=== PATIENT | female | born 1980 | race American Indian/Alaskan Native ===

== ENCOUNTER 2016-08-20 16:58 | Emergency (ER) | payer MEDICAID ==
--- NOTE | 2016-08-20 17:16 | EDM.PDOC ---
ED HPI GI/ABDOMINAL - General Chief Complaint: Abdominal Pain Stated Complaint: SICK Time Seen by Provider: 08/20/16 17:25 Source of Information: Reports: Patient, RN, RN notes reviewed History Limitations: Reports: No limitations - History of Present Illness INITIAL COMMENTS - FREE TEXT/NARRATIVE: Patient complained of awaking at 3 a.m. with nausea and vomiting and approximately 2 to 3 hours later onset of diarrhea. Denies any fever or chills. Reported mild sore throat the day proceeding onset of symptoms. Also complains of mild dry cough with persistent wheezing for several weeks. States she is out of her Albuterol inhaler. No one else at home has been ill. Location: generalized Quality: Reports: ache Severity: moderate Associated Symptoms (-Female): Reports: denies other symptoms - Related Data Allergies/ADRs: Allergies Allergy/AdvReac Type Severity Reaction Status Date / Time No Known Allergies Allergy Verified 08/20/16 17:05 Home Meds: Home Meds . 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 Musculoskeletal History: Reports: None Neurological History: Reports: None Psychiatric History: Reports: None Endocrine/Metabolic History: Reports: None Hematologic History: Reports: None Immunologic History: Reports: None Oncologic (Cancer) History: Reports: None Dermatologic History: Reports: None - Infectious Disease History Infectious Disease History: Reports: Chicken pox - Past Surgical History Head Surgeries/Procedures: Reports: None GI Surgical History: Reports: Cholecystectomy Female Surgical History: Reports: Tubal ligation Social & Family History - Family History Family Medical History: Noncontributory - Tobacco Use Smoking Status *Q: Current Every Day Smoker Years of Tobacco use: 23 Packs/Tins Daily: 0.1 Used Tobacco, but Quit: No Month Tobacco Last Used: january Second Hand Smoke Exposure: No - Caffeine Use Caffeine Use: Reports: Coffee, Soda, Tea - Alcohol Use Days Per Week of Alcohol Use: 0 Number of Drinks Per Day: 5 Total Drinks Per Week: 0 - Recreational Drug Use Recreational Drug Use: No - Living Situation & Occupation Living situation: Reports: with significant other Occupation: employed ED ROS GENERAL - Review of Systems Review Of Systems: ROS reveals no pertinent complaints other than HPI. ED EXAM, GI/ABD - Physical Exam Exam: See Below Exam Limited By: No limitations General Appearance: alert, WD/WN, no apparent distress Eyes: bilateral: normal appearance, EOMI Ears: normal external exam, normal canal, hearing grossly normal, normal TMs Nose: no blood, nasal drainage (mucus and clear.) Throat/Mouth: Normal inspection Head: atraumatic, normocephalic Neck: normal inspection, supple, non-tender, full range of motion Respiratory/Chest: no respiratory distress, no accessory muscle use, decreased breath sounds, wheezing Cardiovascular: normal peripheral pulses, regular rate, rhythm, no edema, no gallop, no JVD, no murmur, no rub GI/Abdominal: no distention, hyperactive bowel sounds, tenderness (mild generalized). No: guarding, rebound, rigidity (Female) Exam: Deferred Rectal (Female) Exam: Deferred Back Exam: normal inspection, full range of motion, NT Extremities: normal inspection, normal range of motion, non-tender, normal capillary refill, no pedal edema Neurological: alert, oriented, CN II-XII intact, normal cognition, normal gait, no motor/sensory deficits Psychiatric: normal affect, normal mood Course - Vital Signs Last Recorded V/S: Last Vital Signs Temp 37.3 C 08/20/16 18:20 Pulse 76 08/20/16 18:20 Resp 16 08/20/16 18:20 BP 104/54 L 08/20/16 18:20 Pulse Ox 100 08/20/16 18:20 - Orders/Labs/Meds Orders: Active Orders 24 hr Category Date Time Status Peripheral IV Care [RC] . DIRECTED Care 08/20/16 17:40 Active RT Aerosol Therapy [RC] ASDIRECTED Care 08/20/16 17:40 Active Chest 2V [CR] Stat Exams 08/20/16 17:39 Taken CULTURE STREP A CONFIRMATION [RM] Stat Lab 08/20/16 17:24 Results STREP SCRN A RAPID W CULT CONF [RM] Stat Lab 08/20/16 17:24 Results UA W/MICROSCOPIC [URIN] Stat Lab 08/20/16 18:12 Received Sodium Chloride 0.9% [Normal Saline] 1,000 ml Med 08/20/16 17:40 Active IV .BOLUS Sodium Chloride 0.9% [Saline Flush] Med 08/20/16 17:40 Active 10 ml FLUSH ASDIRECTED PRN Peripheral IV Insertion Adult [OM.PC] Stat Oth 08/20/16 17:39 Ordered Medication Orders Sodium Chloride (Normal Saline) 1,000 mls @ 999 mls/hr IV .BOLUS ONE Stop: 08/20/16 18:40 Last Admin: 08/20/16 18:12 Dose: Not Given Sodium Chloride (Saline Flush) 10 ml FLUSH ASDIRECTED PRN PRN Reason: Keep Vein Open Labs: Laboratory Tests 08/20/16 08/20/16 08/20/16 Range/Units 17:48 17:48 18:12 WBC 11.8 H (5.0-10.0) 10^3/uL RBC 4.69 (4.2-5.4) 10^6/uL Hgb 12.9 (12.0-16.0) g/dL Hct 39.6 (37.0-47.0) % MCV 84.4 (80-100) fL MCH 27.5 (27.0-34.0) pg MCHC 32.6 L (33.0-35.0) g/dL Plt Count 277 (150-450) 10^3/uL Neut % (Auto) 78.0 H (42.2-75.2) % Lymph % (Auto) 10.5 L (20.5-50.1) % [place] % (Auto) 8.8 H (2-8) % Eos % (Auto) 2.4 (1.0-3.0) % Baso % (Auto) 0.3 (0.0-1.0) % Sodium 137 (135-145) mmol/L Potassium 3.6 (3.6-5.0) mmol/L Chloride 104 (101-111) mmol/L Carbon Dioxide 25.0 (21.0-31.0) mmol/L Anion Gap 11.6 BUN 13 (7-18) mg/dL Creatinine 0.8 (0.6-1.3) mg/dL Est Cr Clr Drug Dosing TNP Estimated GFR (MDRD) > 60 BUN/Creatinine Ratio 16.25 Glucose 81 (74-105) mg/dL Calcium 9.2 (8.4-10.2) mg/dl Total Bilirubin 0.7 (0.2-1.0) mg/dL AST 22 (10-42) IU/L ALT 29 (10-60) IU/L Alkaline Phosphatase 55 (42-121) IU/L Total Protein 7.2 (6.7-8.2) g/dl Albumin 4.2 (3.2-5.5) g/dl Globulin 3.0 Albumin/Globulin Ratio 1.40 Amylase 55 (28-100) U/L Lipase 28 (22-51) U/L Urine HCG, Qual Negative Meds: Medications Generic Name Dose Route Start Last Admin Trade Name Freq PRN Reason Stop Dose Admin Sodium Chloride 1,000 mls @ 999 mls/hr 08/20/16 17:40 08/20/16 18:12 Normal Saline IV 08/20/16 18:40 Not Given .BOLUS ONE Sodium Chloride 10 ml 08/20/16 17:40 Saline Flush FLUSH ASDIRECTED PRN Keep Vein Open Discontinued Medications Generic Name Dose Route Start Last Admin Trade Name Freq PRN Reason Stop Dose Admin Albuterol/Ipratropium 3 ml 08/20/16 17:40 08/20/16 18:18 Duoneb 3.0-0.5 Mg/3 Ml NEB 08/20/16 17:41 3 ml ONETIME ONE Administration Ondansetron HCl 4 mg 08/20/16 17:40 08/20/16 18:12 Zofran IV 08/20/16 17:41 Not Given ONETIME ONE - Radiology Interpretation Free Text/Narrative:: Chest x-ray: No acute process, see rad report. Departure - Departure Time of Disposition: 18:39 Disposition: Home, Self-Care 01 Condition: fair Clinical Impression: Gastroenteritis, Asthma exacerbation Instructions: Viral Gastroenteritis, Adult, [id number], Asthma, Adult Forms: ED Department Discharge Additional Instructions: Albuteral MDI. Zofran 4mg. Use over the counter Imodium AD as directed on the package for diarrhea. Follow up in clinic if not improved in 4 to 5 days. - My Orders Last 24 Hours: My Active Orders 08/20/16 17:24 CULTURE STREP A CONFIRMATION [RM] Stat STREP SCRN A RAPID W CULT CONF [RM] Stat 08/20/16 17:39 Chest 2V [CR] Stat Peripheral IV Insertion Adult [OM.PC] Stat 08/20/16 17:40 Peripheral IV Care [RC] . DIRECTED RT Aerosol Therapy [RC] ASDIRECTED Sodium Chloride 0.9% [Normal Saline] 1,000 ml IV .BOLUS Sodium Chloride 0.9% [Saline Flush] 10 ml FLUSH ASDIRECTED PRN 08/20/16 18:12 UA W/MICROSCOPIC [URIN] Stat - Assessment/Plan Last 24 Hours: My Active Orders 08/20/16 17:24 CULTURE STREP A CONFIRMATION [] Stat STREP SCRN A RAPID W CULT CONF [RM] Stat 08/20/16 17:39 Chest 2V [CR] Stat Peripheral IV Insertion Adult [OM.PC] Stat 08/20/16 17:40 Peripheral IV Care [RC] . DIRECTED RT Aerosol Therapy [RC] ASDIRECTED Sodium Chloride 0.9% [Normal Saline] 1,000 ml IV .BOLUS Sodium Chloride 0.9% [Saline Flush] 10 ml FLUSH ASDIRECTED PRN 08/20/16 18:12 UA W/MICROSCOPIC [URIN] Stat
[2016-08-20] MEDS ORDERED: Sodium Chloride 0.9% 10 ML Syringe FLUSH PRN (17:40)
[2016-08-20] MEDS ORDERED: Ondansetron 4 MG/2 ML SDV IV ONE (17:40)
[2016-08-20] MEDS ORDERED: Sodium Chloride 0.9% 1,000 ML IV ONE (17:40)
[2016-08-20] MEDS ORDERED: Albuterol/Ipratropium 3.0-0.5 MG/3 ML Neb Soln NEB ONE (17:40)
[2016-08-20 18:15] LABS: CHLORIDE,CL 104 mmol/L (101-111); SODIUM,NA 137 mmol/L (135-145)
[2016-08-20 18:20] VITALS: BP 104/54
== END 2016-08-20 18:47 | disposition home or self-care (01) ==
LOC: DL.ED 16:58
DX: K52.9 Noninfective gastroenteritis and colitis, unspecified (principal); J45.901 Unspecified asthma with (acute) exacerbation; F17.210 Nicotine dependence, cigarettes, uncomplicated; Z98.51 Tubal ligation status; Z90.49 Acquired absence of other specified parts of digestive tract
CPT/HCPCS: 36415; 71020; 80053; 81001; 81025; 82150; 83690; 85025; 87081; 87430; 94640; 99284

== ENCOUNTER 2017-06-13 17:18 | Emergency (ER) | payer MEDICAID ==
[2017-06-13 17:29] VITALS: BP 121/63
--- NOTE | 2017-06-13 18:06 | EDM.PDOC ---
Scribed by Estrella Albright 06/13/17 1806 for Jeromy Hoang MD ED HPI GENERAL MEDICAL PROBLEM - General Chief Complaint: Lower Extremity Injury/Pain Stated Complaint: KNEE INJURY [id number] Time Seen by Provider: 06/13/17 17:27 Source of Information: Reports: Patient, RN, RN Notes Reviewed History Limitations: Reports: No Limitations - History of Present Illness INITIAL COMMENTS - FREE TEXT/NARRATIVE: Patient presents stating that at midnight last night she fell off a 4-greer injuring her right knee. Denies any other injury. She complains of significant swelling to the right knee. Unable to bear weight but the pain is so severe with weight bearing that she feels that her knee could give out on her. It is better immobilized and worse with weight bearing, range of motion or palpation. Onset: Today Duration: Getting Worse Location: Reports: Lower Extremity, Right Quality: Reports: Ache Severity: Severe Improves with: Reports: None Worsens with: Reports: None Associated Symptoms: Reports: No Other Symptoms Right Knee Pain Score (Numeric/FACES): 8 - Related Data Allergies Allergy/AdvReac Type Severity Reaction Status Date / Time No Known Allergies Allergy Verified 06/13/17 17:23 Home Meds: Home Meds . 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 Musculoskeletal History: Reports: None Neurological History: Reports: None Psychiatric History: Reports: None Endocrine/Metabolic History: Reports: None Hematologic History: Reports: None Immunologic History: Reports: None Oncologic (Cancer) History: Reports: None Dermatologic History: Reports: None - Infectious Disease History Infectious Disease History: Reports: Chicken Pox - Past Surgical History Female Surgical History: Reports: Tubal Ligation Social & Family History - Family History Family Medical History: Noncontributory - Tobacco Use Smoking Status *Q: Current Every Day Smoker Years of Tobacco use: 23 Packs/Tins Daily: 0.1 Used Tobacco, but Quit: No Month Tobacco Last Used: january Second Hand Smoke Exposure: No - Caffeine Use Caffeine Use: Reports: Coffee, Soda, Tea - Alcohol Use Days Per Week of Alcohol Use: 0 Number of Drinks Per Day: 5 Total Drinks Per Week: 0 - Recreational Drug Use Recreational Drug Use: No - Living Situation & Occupation Living situation: Reports: with Significant Other Occupation: Employed Review of Systems - Review of Systems Review Of Systems: ROS reveals no pertinent complaints other than HPI. ED EXAM, GENERAL - Physical Exam Exam: See Below Exam Limited By: No Limitations General Appearance: Alert, WD/WN, No Apparent Distress Head: Atraumatic, Normocephalic Neck: Full Range of Motion Respiratory/Chest: No Respiratory Distress GI/Abdominal: Normal Bowel Sounds, Soft, Non-Tender (Female) Exam: Deferred Rectal (Female) Exam: Deferred Back Exam: Normal Inspection, Full Range of Motion, NT Extremities: No Pedal Edema, Normal Capillary Refill, Joint Swelling (right anterior knee with significant soft tissue swelling, bruising/contusion. Acute tenderness and decreased range of motion due to pain. Skin is intact.) Neurological: Alert, Oriented, Normal Cognition, No Motor/Sensory Deficits Psychiatric: Normal Affect, Normal Mood Course - Vital Signs Last Recorded V/S: Last Vital Signs Temp 36.9 C 06/13/17 17:28 Pulse 105 H 06/13/17 17:28 Resp 18 06/13/17 17:28 BP 121/63 06/13/17 17:28 Pulse Ox 99 06/13/17 17:28 - Orders/Labs/Meds Orders: Active Orders 24 hr Category Date Time Status Immobilizer [RC] ASDIRECTED Care 06/13/17 18:03 Active DME for Discharge [COMM] Routine Oth 06/13/17 17:36 Ordered - Radiology Interpretation Free Text/Narrative:: X-ray right knee: Soft tissue swelling. No fracture. See rad report. Departure - Departure Time of Disposition: 17:50 Disposition: Home, Self-Care 01 Condition: Good Clinical Impression: Traumatic bursitis - Discharge Information Instructions: Knee Pain, Bursitis, [id number], Contusion, [id number] Referrals: Africa White [Primary Care Provider] - Forms: ED Department Discharge Additional Instructions: Rest, ice and elevate. Use crutches and knee immobilizer as needed for discomfort for 10 days. Over the counter ibuprofen (Motrin/Advil0 200mg, take 3 tablets by mouth every 3 hours as needed for pain. Take with food. Do not exceed 2400mg in 24 hours. Follow up in clinic in 7-10 days for recheck. Consider orthopedic referral if not improving as expected in 10 days. - My Orders Last 24 Hours: My Active Orders 06/13/17 17:36 DME for Discharge [COMM] Routine 06/13/17 18:03 Immobilizer [RC] ASDIRECTED - Assessment/Plan Last 24 Hours: My Active Orders 06/13/17 17:36 DME for Discharge [COMM] Routine 06/13/17 18:03 Immobilizer [RC] ASDIRECTED I have read and agree with the documentation that has been completed regarding this visit. By signing this record, I attest that the documentation was completed in my physical presence and is an accurate record of the encounter.
== END 2017-06-13 18:05 | disposition home or self-care (01) ==
LOC: DL.ED 17:18
DX: M70.51 Other bursitis of knee, right knee (principal); F17.210 Nicotine dependence, cigarettes, uncomplicated; W17.89XA Other fall from one level to another, initial encounter
CPT/HCPCS: 73562-RT; 99283

== ENCOUNTER 2017-08-14 21:19 | Emergency (ER) | payer MEDICAID ==
[2017-08-14] MEDS ORDERED: Sodium Chloride 0.9% 10 ML Syringe FLUSH PRN (21:39)
[2017-08-14 22:02] LABS: CHLORIDE,CL 105 mmol/L (101-111); SODIUM,NA 136 mmol/L (135-145)
[2017-08-14 22:03] VITALS: BP 108/43
--- NOTE | 2017-08-14 22:28 | EDM.PDOC ---
ED HPI GENERAL MEDICAL PROBLEM - General Chief Complaint: Chest Pain Stated Complaint: CHEST PAIN [id number] Time Seen by Provider: 08/14/17 21:42 Source of Information: Reports: Patient, RN, RN Notes Reviewed History Limitations: Reports: No Limitations - History of Present Illness INITIAL COMMENTS - FREE TEXT/NARRATIVE: Pt presents to the ER with c/o chest/neck pain and headache. She states the pain was present when she woke up this morning and has moved to different places but has not gone away. She states the headache feels like a nerve pain on the right side of her scalp. She states the chest pain is in the left upper chest area with some radiation into the left side of the neck. She denies any injury. She denies fever, chills, N/V/D, SOB. She states she has had a dry cough at times. 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 [No Known Home Meds] 10/16/14 [History] Past Medical History - Past Health History Medical/Surgical History: Denies Medical/Surgical History HEENT History: Reports: None Cardiovascular History: Reports: None Respiratory History: Reports: None Gastrointestinal History: Reports: Cholelithiasis Genitourinary History: Reports: None BENCH CARPENTER History: Reports: None Musculoskeletal History: Reports: None Neurological History: Reports: None Psychiatric History: Reports: None Endocrine/Metabolic History: Reports: None Hematologic History: Reports: None Immunologic History: Reports: None Oncologic (Cancer) History: Reports: None Dermatologic History: Reports: None - Infectious Disease History Infectious Disease History: Reports: Chicken Pox - Past Surgical History Head Surgeries/Procedures: Reports: None GI Surgical History: Reports: Cholecystectomy Female Surgical History: Reports: Tubal Ligation Social & Family History - Family History Family Medical History: Noncontributory - Tobacco Use Smoking Status *Q: Unknown Ever Smoked Years of Tobacco use: 23 Packs/Tins Daily: 0.1 Used Tobacco, but Quit: No Month/Year Tobacco Last Used: january Second Hand Smoke Exposure: No - Caffeine Use Caffeine Use: Reports: Coffee, Soda, Tea - Alcohol Use Days Per Week of Alcohol Use: 0 Number of Drinks Per Day: 5 Total Drinks Per Week: 0 - Recreational Drug Use Recreational Drug Use: No - Living Situation & Occupation Living situation: Reports: with Significant Other Occupation: Employed ED ROS GENERAL - Review of Systems Review Of Systems: ROS reveals no pertinent complaints other than HPI. ED EXAM, GENERAL - Physical Exam Exam: See Below Exam Limited By: No Limitations General Appearance: Alert, WD/WN, No Apparent Distress Eye Exam: Bilateral Eye: EOMI, Normal Inspection Ears: Normal External Exam, Hearing Grossly Normal Nose: Normal Inspection Throat/Mouth: Normal Inspection, Normal Voice, No Airway Compromise Head: Atraumatic, Normocephalic Neck: Normal Inspection, Supple, Non-Tender, Full Range of Motion Respiratory/Chest: No Respiratory Distress, Lungs Clear, Normal Breath Sounds, No Accessory Muscle Use, Chest Non-Tender Cardiovascular: Normal Peripheral Pulses, Regular Rate, Rhythm, No Edema, No Gallop, No JVD, No Murmur, No Rub Peripheral Pulses: 2+: Radial (L), Radial (R) GI/Abdominal: Normal Bowel Sounds, Soft, Non-Tender, No Organomegaly, No Distention, No Abnormal Bruit, No Mass (Female) Exam: Deferred Rectal (Female) Exam: Deferred Back Exam: Normal Inspection, Full Range of Motion Extremities: Normal Inspection, Normal Range of Motion, Non-Tender, No Pedal Edema, Normal Capillary Refill Neurological: Alert, Oriented, CN II-XII Intact, Normal Cognition, Normal Gait, Normal Reflexes, No Motor/Sensory Deficits Psychiatric: Normal Affect, Normal Mood Skin Exam: Warm, Dry, Intact, Normal Color, No Rash Lymphatic: No Adenopathy Course - Vital Signs Last Recorded V/S: Last Vital Signs Temp 99.6 F 08/14/17 21:25 Pulse 71 08/14/17 21:25 Resp 20 08/14/17 21:25 BP 108/43 L 08/14/17 21:25 Pulse Ox 99 08/14/17 21:25 - Orders/Labs/Meds Orders: Active Orders 24 hr Category Date Time Status EKG Documentation Completion [RC] STAT Care 08/14/17 21:39 Active Peripheral IV Care [RC] . DIRECTED Care 08/14/17 21:40 Active DRUG SCREEN URINE BIORAD [URCHEM] Stat Lab 08/14/17 22:22 Ordered HCG QUALITATIVE,URINE [URCHEM] Stat Lab 08/14/17 22:22 Ordered UA W/MICROSCOPIC [URIN] Stat Lab 08/14/17 22:22 Ordered Peripheral IV Insertion Adult [OM.PC] Stat Oth 08/14/17 21:39 Ordered Labs: Laboratory Tests 08/14/17 08/14/17 08/14/17 Range/Units 21:35 21:35 22:22 WBC 11.8 H (5.0-10.0) 10^3/uL RBC 4.64 (4.2-5.4) 10^6/uL Hgb 13.3 (12.0-16.0) g/dL Hct 40.7 (37.0-47.0) % MCV 87.7 D (80-100) fL MCH 28.7 (27.0-34.0) pg MCHC 32.7 L (33.0-35.0) g/dL Plt Count 326 (150-450) 10^3/uL Neut % (Auto) 57.1 (42.2-75.2) % Lymph % (Auto) 25.2 (20.5-50.1) % [place] % (Auto) 9.4 H (2-8) % Eos % (Auto) 7.8 H (1.0-3.0) % Baso % (Auto) 0.5 (0.0-1.0) % Sodium 136 (135-145) mmol/L Potassium 3.4 L (3.6-5.0) mmol/L Chloride 105 (101-111) mmol/L Carbon Dioxide 24.0 (21.0-31.0) mmol/L Anion Gap 10.4 BUN 12 (7-18) mg/dL Creatinine 0.7 (0.6-1.3) mg/dL Est Cr Clr Drug Dosing TNP Estimated GFR (MDRD) > 60 BUN/Creatinine Ratio 17.14 Glucose 102 (74-105) mg/dL Calcium 9.0 (8.4-10.2) mg/dl Total Bilirubin 0.4 (0.2-1.0) mg/dL AST 25 (10-42) IU/L ALT 26 (10-60) IU/L Alkaline Phosphatase 59 (42-121) IU/L Troponin I < 0.02 (0.00-0.02) ng/ml Total Protein 7.1 (6.7-8.2) g/dl Albumin 4.1 (3.2-5.5) g/dl Globulin 3.0 Albumin/Globulin Ratio 1.37 Urine Color Yellow (YELLOW) Urine Appearance Slightly cloudy (CLEAR) Urine pH 6.0 (5.0-9.0) Ur Specific [place] 1.020 (1.005-1.030) Urine Protein Negative (NEGATIVE) Urine Glucose (UA) Negative (NEGATIVE) Urine Ketones Negative (NEGATIVE) Urine Occult Blood Negative (NEGATIVE) Urine Nitrite Negative (NEGATIVE) Urine Bilirubin Negative (NEGATIVE) Urine Urobilinogen 0.2 (0.2-1.0) mg/dL Ur Leukocyte Esterase Trace H (NEGATIVE) Urine RBC 0-5 /HPF Urine WBC 0-5 (0-5/HPF) /HPF Ur Epithelial Cells Few /HPF Urine Bacteria Few (0-FEW/HPF) /HPF Urine Other See note Urine HCG, Qual Urine Opiates Screen (NEGATIVE) Ur Oxycodone Screen (NEGATIVE) Urine Methadone Screen (NEGATIVE) Ur Barbiturates Screen (NEGATIVE) U Tricyclic Antidepress (NEGATIVE) Ur Phencyclidine Scrn (NEGATIVE) Ur Amphetamine Screen (NEGATIVE) U Methamphetamines Scrn (NEGATIVE) Urine MDMA Screen (NEGATIVE) U Benzodiazepines Scrn (NEGATIVE) Urine Cocaine Screen (NEGATIVE) U Marijuana (THC) Screen (NEGATIVE) 08/14/17 08/14/17 Range/Units 22:22 22:22 WBC (5.0-10.0) 10^3/uL RBC (4.2-5.4) 10^6/uL Hgb (12.0-16.0) g/dL Hct (37.0-47.0) % MCV (80-100) fL MCH (27.0-34.0) pg MCHC (33.0-35.0) g/dL Plt Count (150-450) 10^3/uL Neut % (Auto) (42.2-75.2) % Lymph % (Auto) (20.5-50.1) % [place] % (Auto) (2-8) % Eos % (Auto) (1.0-3.0) % Baso % (Auto) (0.0-1.0) % Sodium (135-145) mmol/L Potassium (3.6-5.0) mmol/L Chloride (101-111) mmol/L Carbon Dioxide (21.0-31.0) mmol/L Anion Gap BUN (7-18) mg/dL Creatinine (0.6-1.3) mg/dL Est Cr Clr Drug Dosing Estimated GFR (MDRD) BUN/Creatinine Ratio Glucose (74-105) mg/dL Calcium (8.4-10.2) mg/dl Total Bilirubin (0.2-1.0) mg/dL AST (10-42) IU/L ALT (10-60) IU/L Alkaline Phosphatase (42-121) IU/L Troponin I (0.00-0.02) ng/ml Total Protein (6.7-8.2) g/dl Albumin (3.2-5.5) g/dl Globulin Albumin/Globulin Ratio Urine Color (YELLOW) Urine Appearance (CLEAR) Urine pH (5.0-9.0) Ur Specific [place] (1.005-1.030) Urine Protein (NEGATIVE) Urine Glucose (UA) (NEGATIVE) Urine Ketones (NEGATIVE) Urine Occult Blood (NEGATIVE) Urine Nitrite (NEGATIVE) Urine Bilirubin (NEGATIVE) Urine Urobilinogen (0.2-1.0) mg/dL Ur Leukocyte Esterase (NEGATIVE) Urine RBC /HPF Urine WBC (0-5/HPF) /HPF Ur Epithelial Cells /HPF Urine Bacteria (0-FEW/HPF) /HPF Urine Other Urine HCG, Qual Negative Urine Opiates Screen Negative (NEGATIVE) Ur Oxycodone Screen Negative (NEGATIVE) Urine Methadone Screen Negative (NEGATIVE) Ur Barbiturates Screen Negative (NEGATIVE) U Tricyclic Antidepress Negative (NEGATIVE) Ur Phencyclidine Scrn Negative (NEGATIVE) Ur Amphetamine Screen Negative (NEGATIVE) U Methamphetamines Scrn Negative (NEGATIVE) Urine MDMA Screen Negative (NEGATIVE) U Benzodiazepines Scrn Negative (NEGATIVE) Urine Cocaine Screen Negative (NEGATIVE) U Marijuana (THC) Screen Positive H (NEGATIVE) Meds: Medications Discontinued Medications Generic Name Dose Route Start Last Admin Trade Name Freq PRN Reason Stop Dose Admin Sodium Chloride 10 ml 08/14/17 21:39 Saline Flush FLUSH ASDIRECTED PRN Keep Vein Open - Radiology Interpretation Free Text/Narrative:: chest xray: IMPRESSION: Normal chest x-rays. Thank you for allowing us to participate in the care of your patient. Dictated and Authenticated by: Ran Mckeon MD 08/14/2017 10:21 PM Central Time ([place] & [place]) See rad report Departure - Departure Time of Disposition: 22:52 Disposition: Home, Self-Care 01 Condition: Fair Clinical Impression: Non-cardiac chest pain, Cervical radiculopathy Instructions: Nonspecific Chest Pain, [id number], Cervical Radiculopathy, [id number] Referrals: [facility] White [Primary Care Provider] - Forms: ED Department Discharge Additional Instructions: Use Tylenol and/or ibuprofen as directed for pain Follow up with your primary care facility - My Orders Last 24 Hours: My Active Orders 08/14/17 21:39 EKG Documentation Completion [RC] STAT Peripheral IV Insertion Adult [OM.PC] Stat 08/14/17 21:40 Peripheral IV Care [RC] . DIRECTED 08/14/17 22:22 DRUG SCREEN URINE BIORAD [URCHEM] Stat HCG QUALITATIVE,URINE [URCHEM] Stat UA W/MICROSCOPIC [URIN] Stat - Assessment/Plan Last 24 Hours: My Active Orders 08/14/17 21:39 EKG Documentation Completion [RC] STAT Peripheral IV Insertion Adult [OM.PC] Stat 08/14/17 21:40 Peripheral IV Care [RC] . DIRECTED 08/14/17 22:22 DRUG SCREEN URINE BIORAD [URCHEM] Stat HCG QUALITATIVE,URINE [URCHEM] Stat UA W/MICROSCOPIC [URIN] Stat
--- NOTE | 2017-08-18 12:45 | EKG ---
08/14/2017 - GABRIELLA KEATING - TIME: 2125 hours. EKG shows sinus rhythm at 74. [facility] /[id number]
== END 2017-08-14 23:55 | disposition home or self-care (01) ==
LOC: DL.ED 21:19
DX: M54.12 Radiculopathy, cervical region (principal); R07.89 Other chest pain
CPT/HCPCS: 36415; 71046; 80053; 80305; 81001; 81025; 84484; 85025; 87804; 93005; 99285

== ENCOUNTER 2017-12-25 18:12 | Emergency (ER) | payer MEDICAID ==
[2017-12-25 18:58] VITALS: BP 123/76
== END 2017-12-25 20:00 | disposition left against medical advice (07) ==
LOC: DL.ED 18:12
DX: Z53.21 Procedure and treatment not carried out due to patient leaving prior to being seen by health care provider (principal)

== ENCOUNTER 2018-02-05 16:26 | Emergency (ER) | payer MEDICAID ==
[2018-02-05 16:51] VITALS: BP 120/68
--- NOTE | 2018-02-05 17:15 | EDM.PDOC ---
ED HPI GENERAL MEDICAL PROBLEM - General Chief Complaint: Chest Pain Stated Complaint: SIGNS OF A HEART ATTACK [id number] Time Seen by Provider: 02/05/18 16:58 Source of Information: Reports: Patient History Limitations: Reports: No Limitations - History of Present Illness INITIAL COMMENTS - FREE TEXT/NARRATIVE: This 37 yo female patient reports to the ED with left side chest pain that started 3-4 days ago and left shoulder pain (started today radiates to her left arm). The patient reports that she was seen in the clinic about 1 week ago, given a script for a Zpack and steroids, but did not start them until 3 days ago. The patient reports her cough and cold symptoms seem to be getting better. Onset: Today Duration: Constant Location: Reports: Chest Quality: Reports: Ache, Dull, Pressure Severity: Moderate Improves with: Reports: None Worsens with: Reports: None Associated Symptoms: Reports: No Other Symptoms Left Shoulder Pain Score (Numeric/FACES): 8 - Related Data Allergies Allergy/AdvReac Type Severity Reaction Status Date / Time No Known Allergies Allergy Verified 02/05/18 16:50 Home Meds: Home Meds Albuterol Sulfate [Proair Hfa] 2 puff INH ASDIRECTED PRN 12/25/17 [History] Past Medical History - Past Health History Medical/Surgical History: Denies Medical/Surgical History HEENT History: Reports: None Cardiovascular History: Reports: None Respiratory History: Reports: None, Asthma Gastrointestinal History: Reports: Cholelithiasis Genitourinary History: Reports: None 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, Musculoskeletal History: Reports: None Neurological History: Reports: None Psychiatric History: Reports: None Endocrine/Metabolic History: Reports: None Hematologic History: Reports: None Immunologic History: Reports: None Oncologic (Cancer) History: Reports: None Dermatologic History: Reports: None - Infectious Disease History Infectious Disease History: Reports: Chicken Pox - Past Surgical History Head Surgeries/Procedures: Reports: None GI Surgical History: Reports: Cholecystectomy Female Surgical History: Reports: Tubal Ligation Social & Family History - Family History Family Medical History: Noncontributory - Tobacco Use Smoking Status *Q: Never Smoker Second Hand Smoke Exposure: No - Caffeine Use Caffeine Use: Reports: Soda Other Caffeine Use: 1 can/day - Recreational Drug Use Recreational Drug Use: No - Living Situation & Occupation Living situation: Reports: with Significant Other Occupation: Employed ED ROS GENERAL - Review of Systems Review Of Systems: ROS reveals no pertinent complaints other than HPI. ED EXAM, GENERAL - Physical Exam Exam: See Below Exam Limited By: No Limitations General Appearance: Alert, WD/WN, Mild Distress Eye Exam: Bilateral Eye: EOMI, Normal Inspection, PERRL Ears: Normal External Exam, Normal Canal, Hearing Grossly Normal, Normal TMs Nose: Normal Inspection, Normal Mucosa, No Blood Throat/Mouth: Normal Inspection, Normal Lips, Normal Teeth, Normal Gums, Normal Oropharynx, Normal Voice, No Airway Compromise Head: Atraumatic, Normocephalic Neck: Normal Inspection, Supple, Non-Tender, Full Range of Motion Respiratory/Chest: No Respiratory Distress, Lungs Clear, Normal Breath Sounds, No Accessory Muscle Use, Other (tenderness to the left upper chest) Cardiovascular: Normal Peripheral Pulses, Regular Rate, Rhythm, No Edema, No Gallop, No JVD, No Murmur, No Rub GI/Abdominal: Normal Bowel Sounds, Soft, Non-Tender, No Organomegaly, No Distention, No Abnormal Bruit, No Mass (Female) Exam: Deferred Rectal (Female) Exam: Deferred Back Exam: Normal Inspection, Full Range of Motion, NT Extremities: Arm Pain (left upper chest and shoulder pain) Neurological: Alert, Oriented, CN II-XII Intact, Normal Cognition, Normal Gait, Normal Reflexes, No Motor/Sensory Deficits Psychiatric: Anxious Skin Exam: Warm, Dry, Intact, Normal Color, No Rash Lymphatic: No Adenopathy Course - Vital Signs Last Recorded V/S: Last Vital Signs Temp 36.0 C 02/05/18 16:38 Pulse 65 02/05/18 16:38 Resp 14 02/05/18 16:38 BP 120/68 02/05/18 16:38 Pulse Ox 100 02/05/18 16:38 - Orders/Labs/Meds Orders: Active Orders 24 hr Category Date Time Status EKG Documentation Completion [RC] URGENT Care 02/05/18 16:40 Ordered DRUG SCREEN URINE BIORAD [URCHEM] Stat Lab 02/05/18 16:40 Ordered HCG QUALITATIVE,URINE [URCHEM] Stat Lab 02/05/18 16:40 Ordered UA W/MICROSCOPIC [URIN] Stat Lab 02/05/18 16:40 Ordered Labs: Laboratory Tests 09/28/18 09/28/18 Range/Units 16:54 16:54 WBC 11.7 H (5.0-10.0) 10^3/uL RBC 4.48 (4.2-5.4) 10^6/uL Hgb 12.2 (12.0-16.0) g/dL Hct 38.6 (37.0-47.0) % MCV 86.2 (80-100) fL MCH 27.2 (27.0-34.0) pg MCHC 31.6 L (33.0-35.0) g/dL Plt Count 370 (150-450) 10^3/uL Neut % (Auto) 57.9 (42.2-75.2) % Lymph % (Auto) 30.0 (20.5-50.1) % Schley % (Auto) 8.9 H (2-8) % Eos % (Auto) 2.6 (1.0-3.0) % Baso % (Auto) 0.6 (0.0-1.0) % Sodium 139 (135-145) mmol/L Potassium 3.5 L (3.6-5.0) mmol/L Chloride 106 (101-111) mmol/L Carbon Dioxide 29.0 (21.0-31.0) mmol/L Anion Gap 7.5 BUN 12 (7-18) mg/dL Creatinine 0.8 (0.6-1.3) mg/dL Est Cr Clr Drug Dosing 71.24 mL/min Estimated GFR (MDRD) > 60 BUN/Creatinine Ratio 15.00 Glucose 92 (74-105) mg/dL Calcium 8.8 (8.4-10.2) mg/dl Total Bilirubin 0.3 (0.2-1.0) mg/dL AST 18 (10-42) IU/L ALT 20 (10-60) IU/L Alkaline Phosphatase 60 (42-121) IU/L Troponin I < 0.02 (0.00-0.02) ng/ml Total Protein 6.8 (6.7-8.2) g/dl Albumin 4.0 (3.2-5.5) g/dl Globulin 2.8 Albumin/Globulin Ratio 1.43 Departure - Departure Time of Disposition: 17:46 Disposition: Home, Self-Care 01 Condition: Fair Clinical Impression: Chest wall pain Pectoralis muscle strain Qualifiers: Encounter type: initial encounter Qualified Code(s): S29.011A - Strain of muscle and tendon of front wall of thorax, initial encounter Instructions: Muscle Strain, [id number], Chest Wall Pain, [id number] Forms: ED Department Discharge Care Plan Goals: The patient was advised of the examination, lab and EKG results during the visit. The patient was encouraged to rest and ice the area of concern. The patient may take Tylenol or ibuprofen as directed for temporary symptom relief. If the patient has any additional symptoms or concerns, the patient should visit her primary care facility or return to the emergency department. - My Orders Last 24 Hours: My Active Orders 02/05/18 16:40 EKG Documentation Completion [RC] URGENT DRUG SCREEN URINE BIORAD [URCHEM] Stat HCG QUALITATIVE,URINE [URCHEM] Stat UA W/MICROSCOPIC [URIN] Stat - Assessment/Plan Last 24 Hours: My Active Orders 02/05/18 16:40 EKG Documentation Completion [RC] URGENT DRUG SCREEN URINE BIORAD [URCHEM] Stat HCG QUALITATIVE,URINE [URCHEM] Stat UA W/MICROSCOPIC [URIN] Stat
[2018-02-05 17:20] LABS: ANION GAP 7.5; CHLORIDE,CL 106 mmol/L (101-111); SODIUM,NA 139 mmol/L (135-145)
== END 2018-02-05 17:54 | disposition home or self-care (01) ==
LOC: DL.ED 16:26
DX: S29.011A Strain of muscle and tendon of front wall of thorax, initial encounter (principal); J45.909 Unspecified asthma, uncomplicated; X58.XXXA Exposure to other specified factors, initial encounter; Z79.899 Other long term (current) drug therapy
CPT/HCPCS: 36415; 80053; 84484; 85025; 93005; 99283

== ENCOUNTER 2018-05-22 09:36 | Emergency (ER) | payer MEDICAID ==
--- NOTE | 2018-05-22 09:42 | EDM.PDOC ---
ED HPI GENERAL MEDICAL PROBLEM - General Chief Complaint: Respiratory Problem Stated Complaint: HARD TIME BREATHING [id number] Time Seen by Provider: 05/22/18 09:39 Source of Information: Reports: Patient, Old Records, RN, RN Notes Reviewed History Limitations: Reports: No Limitations - History of Present Illness INITIAL COMMENTS - FREE TEXT/NARRATIVE: Pt presents to ER from home by POV with c/o "hard time breathing". Pt reports Hx of asthma. Denies fevers, sputum production, or sore throat. Has a nebulizer machine and Albuterol solution, but doesn't have the tubing or mouth piece. 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 Treatments - Related Data Allergies Allergy/AdvReac Type Severity Reaction Status Date / Time No Known Allergies Allergy Verified 05/22/18 09:48 Home Meds: Home Meds Albuterol Sulfate [Proair Hfa] 2 puff INH ASDIRECTED PRN 12/25/17 [History] Amoxicillin/Clavulanate K [Augmentin 875-125 MG] 1 tab PO DAILY 05/22/18 [ History] Benzonatate [Tessalon Perle] 200 mg PO TID PRN 05/22/18 [History] Budesonide [Pulmicort Flexhaler] 1 puff INH BID PRN 05/22/18 [History] Past Medical History - Past Health History Medical/Surgical History: Denies Medical/Surgical History HEENT History: Reports: None Cardiovascular History: Reports: None Respiratory History: Reports: Asthma Gastrointestinal History: Reports: Cholelithiasis Genitourinary History: Reports: None 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, Musculoskeletal History: Reports: None Neurological History: Reports: None Psychiatric History: Reports: Anxiety Endocrine/Metabolic History: Reports: None Hematologic History: Reports: None Immunologic History: Reports: None Oncologic (Cancer) History: Reports: None Dermatologic History: Reports: None - Infectious Disease History Infectious Disease History: Reports: Chicken Pox - Past Surgical History Head Surgeries/Procedures: Reports: None GI Surgical History: Reports: Cholecystectomy Female Surgical History: Reports: Tubal Ligation Social & Family History - Family History Family Medical History: Noncontributory - Caffeine Use Caffeine Use: Reports: Coffee, Soda Other Caffeine Use: 1 can/day - Living Situation & Occupation Living situation: Reports: with Significant Other Occupation: Employed ED ROS GENERAL - Review of Systems Review Of Systems: ROS reveals no pertinent complaints other than HPI. ED EXAM, GENERAL - Physical Exam Exam: See Below Exam Limited By: No Limitations General Appearance: Alert, WD/WN, No Apparent Distress Nose: Normal Inspection Throat/Mouth: Normal Inspection, Normal Lips, Normal Voice, No Airway Compromise Head: Atraumatic, Normocephalic Neck: Normal Inspection Respiratory/Chest: No Respiratory Distress, No Accessory Muscle Use, Chest Non- Tender, Wheezing. No: Crackles, Rales, Rhonchi Cardiovascular: Regular Rate, Rhythm Extremities: Normal Inspection Neurological: Alert, Oriented, No Motor/Sensory Deficits Psychiatric: Normal Mood Skin Exam: Warm, Dry, Intact, Normal Color, No Rash Course - Vital Signs Last Recorded V/S: Last Vital Signs Temp 36.4 C 05/22/18 09:43 Pulse 79 05/22/18 09:43 Resp 18 05/22/18 09:43 BP 128/63 05/22/18 09:43 Pulse Ox 98 05/22/18 09:43 - Orders/Labs/Meds Orders: Active Orders 24 hr Category Date Time Status RT Aerosol Therapy [RC] ASDIRECTED Care 05/22/18 09:52 Active RT Post Treatment Assessment [RC] Click to Edit Care 05/22/18 09:52 Active RT Pre-Treatment Assessment [RC] Click to Edit Care 05/22/18 09:52 Active Meds: Medications Discontinued Medications Generic Name Dose Route Start Last Admin Trade Name Francisco J PRN Reason Stop Dose Admin Albuterol 6.7 gm 05/22/18 09:52 Proventil Hfa INH 05/22/18 09:53 ONETIME ONE Albuterol/Ipratropium 3 ml 05/22/18 09:51 05/22/18 09:59 Duoneb 3.0-0.5 Mg/3 Ml NEB 05/22/18 09:52 3 ml ONETIME ONE Administration Prednisone 60 mg 05/22/18 09:55 Prednisone PO 05/22/18 09:56 ONETIME ONE Departure - Departure Time of Disposition: 10:03 Disposition: Home, Self-Care 01 Condition: Good Clinical Impression: Asthma exacerbation Qualifiers: Asthma severity: moderate Asthma persistence: unspecified Qualified Code(s): J45.901 - Unspecified asthma with (acute) exacerbation - Discharge Information *PRESCRIPTION DRUG MONITORING PROGRAM REVIEWED*: Not Applicable *COPY OF PRESCRIPTION DRUG MONITORING REPORT IN PATIENT NEGRO: Not Applicable Instructions: Asthma, Adult Forms: ED Department Discharge Additional Instructions: Rx: Prednisone 20mg Use your inhaler and nebulizer as prescribed. Follow up in clinic if not improving in 3 to 5 days. Return to ER if worse at any time. - My Orders Last 24 Hours: My Active Orders 05/22/18 09:52 RT Aerosol Therapy [RC] ASDIRECTED RT Post Treatment Assessment [RC] Click to Edit RT Pre-Treatment Assessment [RC] Click to Edit - Assessment/Plan Last 24 Hours: My Active Orders 05/22/18 09:52 RT Aerosol Therapy [RC] ASDIRECTED RT Post Treatment Assessment [RC] Click to Edit RT Pre-Treatment Assessment [RC] Click to Edit
[2018-05-22 09:44] VITALS: BP 128/63
[2018-05-22] MEDS ORDERED: Albuterol/Ipratropium 3.0-0.5 MG/3 ML Neb Soln NEB ONE (09:51)
[2018-05-22] MEDS ORDERED: Albuterol 6.7 GM Inhaler INH ONE (09:52)
[2018-05-22] MEDS ORDERED: predniSONE 20 MG Tab PO ONE (09:55)
== END 2018-05-22 10:14 | disposition home or self-care (01) ==
LOC: DL.ED 09:36
DX: J45.901 Unspecified asthma with (acute) exacerbation (principal); F41.9 Anxiety disorder, unspecified; Z79.899 Other long term (current) drug therapy
CPT/HCPCS: 99285; A9270; J7620-GY

== ENCOUNTER 2018-05-23 13:44 | Emergency (ER) | payer MEDICAID ==
[2018-05-23 14:27] VITALS: BP 112/60
== END 2018-05-23 18:30 | disposition left against medical advice (07) ==
LOC: DL.ED 13:44
DX: Z53.21 Procedure and treatment not carried out due to patient leaving prior to being seen by health care provider (principal)
CPT/HCPCS: 81001

== ENCOUNTER 2018-08-09 14:26 | Emergency (ER) | payer MEDICAID ==
--- NOTE | 2018-08-09 14:55 | EDM.PDOC ---
ED HPI GENERAL MEDICAL PROBLEM - General Chief Complaint: Respiratory Problem Stated Complaint: TWO DAYS HAVING PAIN IN LEFT SIDE OF CHEST Time Seen by Provider: 08/09/18 14:54 Source of Information: Reports: Patient, Old Records, RN, RN Notes Reviewed History Limitations: Reports: No Limitations - History of Present Illness INITIAL COMMENTS - FREE TEXT/NARRATIVE: Pt arrives to ER from home by POV with c/o wheezing with sharp left chest pains. Pt reports the pain is worse with movement of the chest/chest wall and back, and with deep breathing or coughing. Denies fever, chills, palpitations, or edema. Admits to mild shortness of breath. Pt reports Hx of asthma, but hasn' t been using her nebulizer because it makes her hands tremble. 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 Left Chest Pain Score (Numeric/FACES): 7 - Related Data Allergies Allergy/AdvReac Type Severity Reaction Status Date / Time cat dander Allergy Sneezing Verified 08/09/18 14:39 Home Meds: Home Meds Albuterol Sulfate [Proair Hfa] 2 puff INH ASDIRECTED PRN 12/25/17 [History] Budesonide [Pulmicort Flexhaler] 1 puff INH BID PRN 05/22/18 [History] Past Medical History - Past Health History Medical/Surgical History: Denies Medical/Surgical History HEENT History: Reports: None Cardiovascular History: Reports: None Respiratory History: Reports: Asthma Gastrointestinal History: Reports: Cholelithiasis Genitourinary History: Reports: None 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, Musculoskeletal History: Reports: None Neurological History: Reports: None Psychiatric History: Reports: Anxiety Endocrine/Metabolic History: Reports: None Hematologic History: Reports: None Immunologic History: Reports: None Oncologic (Cancer) History: Reports: None Dermatologic History: Reports: None - Infectious Disease History Infectious Disease History: Reports: Chicken Pox - Past Surgical History Head Surgeries/Procedures: Reports: None GI Surgical History: Reports: Cholecystectomy Female Surgical History: Reports: Tubal Ligation Social & Family History - Family History Family Medical History: Noncontributory - Tobacco Use Smoking Status *Q: Former Smoker Used Tobacco, but Quit: Yes Month/Year Tobacco Last Used: May 2018 - Caffeine Use Caffeine Use: Reports: Coffee, Soda Other Caffeine Use: 1 can/day - Recreational Drug Use Recreational Drug Use: No - Living Situation & Occupation Living situation: Reports: with Significant Other Occupation: Employed ED ROS GENERAL - Review of Systems Review Of Systems: ROS reveals no pertinent complaints other than HPI. ED EXAM, GENERAL - Physical Exam Exam: See Below Exam Limited By: No Limitations General Appearance: Alert, WD/WN, No Apparent Distress Eye Exam: Bilateral Eye: Normal Inspection Ears: Normal External Exam, Normal Canal, Hearing Grossly Normal, Normal TMs Nose: No Blood, Nasal Drainage (clear nasal mucus drainage) Throat/Mouth: Normal Lips, Normal Teeth, Normal Gums, Normal Voice, No Airway Compromise, Other (postnasal drip of clear mucus) Head: Atraumatic, Normocephalic Neck: Normal Inspection, Supple, Non-Tender, Full Range of Motion. No: Lymphadenopathy (L), Lymphadenopathy (R) Respiratory/Chest: No Respiratory Distress, No Accessory Muscle Use, Wheezing (B /L insp/exp. wheezes throughout B/L lung wilson). No: Crackles, Rales, Rhonchi Cardiovascular: Normal Peripheral Pulses, Regular Rate, Rhythm, No Edema, No Gallop, No JVD, No Murmur, No Rub GI/Abdominal: Normal Bowel Sounds, Soft, Non-Tender, No Distention Back Exam: Normal Inspection Extremities: Normal Inspection, Normal Range of Motion, Non-Tender, Normal Capillary Refill, No Pedal Edema Neurological: Alert, Oriented, CN II-XII Intact, Normal Cognition, Normal Gait, No Motor/Sensory Deficits Psychiatric: Anxious Skin Exam: Warm, Dry, Intact, Normal Color, No Rash Course - Vital Signs Last Recorded V/S: Last Vital Signs Temp 36.9 C 08/09/18 14:39 Pulse 74 08/09/18 14:39 Resp 18 08/09/18 14:39 BP 126/89 08/09/18 14:39 Pulse Ox 99 08/09/18 14:39 - Orders/Labs/Meds Labs: Laboratory Tests 08/09/18 08/09/18 Range/Units 15:14 15:14 WBC 10.1 H (5.0-10.0) 10^3/uL RBC 4.69 (4.2-5.4) 10^6/uL Hgb 13.1 (12.0-16.0) g/dL Hct 40.3 (37.0-47.0) % MCV 85.9 (80-100) fL MCH 27.9 (27.0-34.0) pg MCHC 32.5 L (33.0-35.0) g/dL Plt Count 402 (150-450) 10^3/uL Neut % (Auto) 60.3 (42.2-75.2) % Lymph % (Auto) 23.7 (20.5-50.1) % Bonner % (Auto) 7.6 (2-8) % Eos % (Auto) 7.7 H (1.0-3.0) % Baso % (Auto) 0.7 (0.0-1.0) % Sodium 135 (135-145) mmol/L Potassium 3.7 (3.6-5.0) mmol/L Chloride 103 (101-111) mmol/L Carbon Dioxide 21.0 (21.0-31.0) mmol/L Anion Gap 14.7 BUN 10 (7-18) mg/dL Creatinine 0.7 (0.6-1.3) mg/dL Est Cr Clr Drug Dosing 80.61 mL/min Estimated GFR (MDRD) > 60 BUN/Creatinine Ratio 14.28 Glucose 86 (74-105) mg/dL Calcium 8.9 (8.4-10.2) mg/dl Total Bilirubin 0.6 (0.2-1.0) mg/dL AST 25 (10-42) IU/L ALT 29 (10-60) IU/L Alkaline Phosphatase 60 (42-121) IU/L Total Protein 7.4 (6.7-8.2) g/dl Albumin 4.3 (3.2-5.5) g/dl Globulin 3.1 Albumin/Globulin Ratio 1.39 - Radiology Interpretation Free Text/Narrative:: Chest XR: no acute process per Rad. report. Departure - Departure Time of Disposition: 16:08 Disposition: Home, Self-Care 01 Condition: Good Clinical Impression: Pleurisy without effusion, Allergic sinusitis Asthma exacerbation Qualifiers: Asthma severity: moderate Asthma persistence: persistent Qualified Code(s): J45.41 - Moderate persistent asthma with (acute) exacerbation - Discharge Information *PRESCRIPTION DRUG MONITORING PROGRAM REVIEWED*: No *COPY OF PRESCRIPTION DRUG MONITORING REPORT IN PATIENT NEGRO: No Instructions: Postnasal Drip, Pleurisy, Asthma, Adult, [id number] Forms: ED Department Discharge Additional Instructions: Rx: Prednisone 20mg Rx: Zyrtec 10mg Use your nebulizer (at home) and inhaler (at work) every 4 hours while awake for at least the next 3 days or until wheezing resolves. Follow up in clinic if not improving in 3 to 4 days.
--- NOTE | 2018-08-09 15:08 | CR ---
Clinical history: 38-year-old female with cough and chest wall pain. Interpretation: Negative exam. No acute new cardiopulmonary abnormality since 14 August 2017 exam. Normal cardiac silhouette and bony thorax. No new lung mass, hilar lymphadenopathy or focal lobar pneumonia No atelectasis/collapse. No pneumothorax or free subdiaphragmatic air.
[2018-08-09 15:43] LABS: ANION GAP 14.7; CHLORIDE,CL 103 mmol/L (101-111); SODIUM,NA 135 mmol/L (135-145)
[2018-08-09 16:19] VITALS: BP 101/57
== END 2018-08-09 16:17 | disposition home or self-care (01) ==
LOC: DL.ED 14:26
DX: J45.41 Moderate persistent asthma with (acute) exacerbation (principal); R09.1 Pleurisy; Z79.899 Other long term (current) drug therapy; J45.909 Unspecified asthma, uncomplicated; Z87.891 Personal history of nicotine dependence
CPT/HCPCS: 36415; 71046; 80053; 85025; 99283-25

== ENCOUNTER 2019-01-13 11:34 | Emergency (ER) | payer MEDICAID ==
--- NOTE | 2019-01-13 11:44 | EDM.PDOC ---
ED HPI GENERAL MEDICAL PROBLEM - General Chief Complaint: Cardiovascular Problem Stated Complaint: FEELS LIKE HEART IS BEATING WEIRD PER PATIENT Time Seen by Provider: 01/13/19 11:43 Source of Information: Reports: Patient, Old Records, RN, RN Notes Reviewed History Limitations: Reports: No Limitations - History of Present Illness INITIAL COMMENTS - FREE TEXT/NARRATIVE: Pt presents to ER from home by POV with c/o that at 0700HRS this morning she had onset of a feeling that her heart was beating "weird". Pt states this has been happening randomly for a few weeks. She says she told her doctor that her heart was beating fast and irregular at times, but her doctor "didn't do anything about it". Pt states she used her Albuterol inhaler but it didn't change anything. She also c/o numbness to her left arm for the last 5 minutes. Pt states she was seen in clinic by Dr. Gonzalez on 01/03/19, and was given a steroid and antibiotic, but pt chose to take only the antibiotic at first as she doesn't like to take pills. She states she is taking a inhaler, Symbicort ( 2 puffs once a day), but hasn't used for a couple of days. She also states she is using an Albuterol inhaler. She denies pain at present. Location: Reports: Chest Quality: Reports: Other (Denies pain) Severity: Moderate Improves with: Reports: None Worsens with: Reports: None Associated Symptoms: Reports: No Other Symptoms - Related Data Allergies Allergy/AdvReac Type Severity Reaction Status Date / Time cat dander Allergy Sneezing Verified 08/09/18 14:39 dust mites Allergy Sneezing Uncoded 01/13/19 11:48 Home Meds: Home Meds Albuterol Sulfate [Proair Hfa] 2 puff INH ASDIRECTED PRN 12/25/17 [History] Budesonide/Formoterol [Symbicort 160-4.5 MCG] 2 inhaler INH DAILY 01/13/19 [ History] Past Medical History - Past Health History Medical/Surgical History: Denies Medical/Surgical History HEENT History: Reports: None Cardiovascular History: Reports: None Respiratory History: Reports: Asthma Gastrointestinal History: Reports: Cholelithiasis Genitourinary History: Reports: None 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, Musculoskeletal History: Reports: None Neurological History: Reports: None Psychiatric History: Reports: Anxiety Endocrine/Metabolic History: Reports: None Hematologic History: Reports: None Immunologic History: Reports: None Oncologic (Cancer) History: Reports: None Dermatologic History: Reports: None - Infectious Disease History Infectious Disease History: Reports: Chicken Pox - Past Surgical History Head Surgeries/Procedures: Reports: None GI Surgical History: Reports: Cholecystectomy Female Surgical History: Reports: Tubal Ligation Social & Family History - Family History Family Medical History: Noncontributory - Caffeine Use Caffeine Use: Reports: Coffee, Soda Other Caffeine Use: 1 can/day - Recreational Drug Use Recreational Drug Use: Yes Recreational Drug Type: Reports: Marijuana/Hashish - Living Situation & Occupation Living situation: Reports: with Significant Other Occupation: Employed ED ROS GENERAL - Review of Systems Review Of Systems: ROS reveals no pertinent complaints other than HPI. ED EXAM, GENERAL - Physical Exam Exam: See Below Exam Limited By: No Limitations General Appearance: Alert, WD/WN, No Apparent Distress, Anxious, Obese Eye Exam: Bilateral Eye: Normal Inspection Nose: Normal Inspection Throat/Mouth: Normal Inspection, Normal Lips, Normal Voice, No Airway Compromise Head: Atraumatic, Normocephalic Neck: Normal Inspection Respiratory/Chest: No Respiratory Distress, Lungs Clear, Normal Breath Sounds, No Accessory Muscle Use, Chest Non-Tender Cardiovascular: Normal Peripheral Pulses, Regular Rate, Rhythm, No Edema, No Gallop, No JVD, No Murmur, No Rub GI/Abdominal: Normal Bowel Sounds, Soft, Non-Tender Back Exam: Normal Inspection Extremities: Normal Inspection, Normal Range of Motion, Non-Tender, Normal Capillary Refill, No Pedal Edema Neurological: Alert, Oriented, CN II-XII Intact, Normal Cognition, Normal Gait, No Motor/Sensory Deficits Psychiatric: Anxious Skin Exam: Warm, Dry, Intact, Normal Color, No Rash EKG INTERPRETATION EKG Date: 01/13/19 Time: 11:58 Rhythm: NSR Rate (Beats/Min): 70 [place]: Normal P-Wave: Present QRS: Normal ST-T: Normal QT: Normal Comparison: No Change Course - Vital Signs Last Recorded V/S: Last Vital Signs Temp 97.3 F 01/13/19 11:38 Pulse 77 01/13/19 11:38 Resp 16 09/05/19 11:38 BP 114/57 L 09/05/19 11:38 Pulse Ox 100 01/13/19 11:38 - Orders/Labs/Meds Orders: Active Orders 24 hr Category Date Time Status EKG 12 Lead [EKG Documentation Completion] [RC] STAT Care 01/13/19 11:44 Active Chest 1V Frontal [CR] Stat Exams 01/13/19 12:03 Taken CULTURE URINE [RM] Stat Lab 01/13/19 13:00 Received Labs: Laboratory Tests 01/13/19 01/13/19 01/13/19 Range/Units 12:11 12:11 12:11 WBC 9.6 (5.0-10.0) 10^3/uL RBC 4.72 (4.2-5.4) 10^6/uL Hgb 13.1 (12.0-16.0) g/dL Hct 40.3 (37.0-47.0) % MCV 85.4 (80-100) fL MCH 27.8 (27.0-34.0) pg MCHC 32.5 L (33.0-35.0) g/dL Plt Count 342 (150-450) 10^3/uL Neut % (Auto) 63.1 (42.2-75.2) % Lymph % (Auto) 22.3 (20.5-50.1) % [place] % (Auto) 7.6 (2-8) % Eos % (Auto) 6.5 H (1.0-3.0) % Baso % (Auto) 0.5 (0.0-1.0) % Sodium 139 (135-145) mmol/L Potassium 3.6 (3.6-5.0) mmol/L Chloride 108 (101-111) mmol/L Carbon Dioxide 24.0 (21.0-31.0) mmol/L Anion Gap 10.6 BUN 11 (7-18) mg/dL Creatinine 0.7 (0.6-1.3) mg/dL Est Cr Clr Drug Dosing 80.61 mL/min Estimated GFR (MDRD) > 60 BUN/Creatinine Ratio 15.71 Glucose 88 (74-105) mg/dL Calcium 8.7 (8.4-10.2) mg/dl Total Bilirubin 0.5 (0.2-1.0) mg/dL AST 21 (10-42) IU/L ALT 30 (10-60) IU/L Alkaline Phosphatase 62 (42-121) IU/L Troponin I < 0.02 (0.00-0.02) ng/ml Total Protein 7.2 (6.7-8.2) g/dl Albumin 4.2 (3.2-5.5) g/dl Globulin 3.0 Albumin/Globulin Ratio 1.40 TSH, Ultra Sensitive 1.63 (0.45-5.33) uIu/mL Urine Color (YELLOW) Urine Appearance (CLEAR) Urine pH (5.0-9.0) Ur Specific [place] (1.005-1.030) Urine Protein (NEGATIVE) Urine Glucose (UA) (NEGATIVE) Urine Ketones (NEGATIVE) Urine Occult Blood (NEGATIVE) Urine Nitrite (NEGATIVE) Urine Bilirubin (NEGATIVE) Urine Urobilinogen (0.2-1.0) mg/dL Ur Leukocyte Esterase (NEGATIVE) Urine RBC /HPF Urine WBC (0-5/HPF) /HPF Ur Epithelial Cells (NOT SEEN) /HPF Urine Bacteria (0-FEW/HPF) /HPF Urine Mucus (NOT SEEN) /LPF Urine HCG, Qual 01/13/19 01/13/19 Range/Units 13:00 13:00 WBC (5.0-10.0) 10^3/uL RBC (4.2-5.4) 10^6/uL Hgb (12.0-16.0) g/dL Hct (37.0-47.0) % MCV (80-100) fL MCH (27.0-34.0) pg MCHC (33.0-35.0) g/dL Plt Count (150-450) 10^3/uL Neut % (Auto) (42.2-75.2) % Lymph % (Auto) (20.5-50.1) % [place] % (Auto) (2-8) % Eos % (Auto) (1.0-3.0) % Baso % (Auto) (0.0-1.0) % Sodium (135-145) mmol/L Potassium (3.6-5.0) mmol/L Chloride (101-111) mmol/L Carbon Dioxide (21.0-31.0) mmol/L Anion Gap BUN (7-18) mg/dL Creatinine (0.6-1.3) mg/dL Est Cr Clr Drug Dosing mL/min Estimated GFR (MDRD) BUN/Creatinine Ratio Glucose (74-105) mg/dL Calcium (8.4-10.2) mg/dl Total Bilirubin (0.2-1.0) mg/dL AST (10-42) IU/L ALT (10-60) IU/L Alkaline Phosphatase (42-121) IU/L Troponin I (0.00-0.02) ng/ml Total Protein (6.7-8.2) g/dl Albumin (3.2-5.5) g/dl Globulin Albumin/Globulin Ratio TSH, Ultra Sensitive (0.45-5.33) uIu/mL Urine Color Yellow (YELLOW) Urine Appearance Clear (CLEAR) Urine pH 5.5 (5.0-9.0) Ur Specific [place] 1.020 (1.005-1.030) Urine Protein Negative (NEGATIVE) Urine Glucose (UA) Negative (NEGATIVE) Urine Ketones Negative (NEGATIVE) Urine Occult Blood Large H (NEGATIVE) Urine Nitrite Negative (NEGATIVE) Urine Bilirubin Negative (NEGATIVE) Urine Urobilinogen 0.2 (0.2-1.0) mg/dL Ur Leukocyte Esterase Moderate H (NEGATIVE) Urine RBC 5-10 H /HPF Urine WBC 10-20 H (0-5/HPF) /HPF Ur Epithelial Cells Moderate H (NOT SEEN) /HPF Urine Bacteria Moderate H (0-FEW/HPF) /HPF Urine Mucus Moderate H (NOT SEEN) /LPF Urine HCG, Qual Negative - Radiology Interpretation Free Text/Narrative:: CXR: no acute process, see Rad. report. Departure - Departure Time of Disposition: 13:32 Disposition: Home, Self-Care 01 Condition: Good Clinical Impression: Palpitations, Bacterial vaginosis Instructions: Palpitations, Bacterial Vaginosis Forms: ED Department Discharge Additional Instructions: Rx: Flagyl (Metronidazole) 500mg Follow up in clinic with your primary doctor for urine recheck, and to consider a cardiac event monitor test. - My Orders Last 24 Hours: My Active Orders 01/13/19 11:44 EKG 12 Lead [EKG Documentation Completion] [RC] STAT 01/13/19 12:03 Chest 1V Frontal [CR] Stat 01/13/19 13:00 CULTURE URINE [RM] Stat - Assessment/Plan Last 24 Hours: My Active Orders 01/13/19 11:44 EKG 12 Lead [EKG Documentation Completion] [RC] STAT 01/13/19 12:03 Chest 1V Frontal [CR] Stat 01/13/19 13:00 CULTURE URINE [RM] Stat
[2019-01-13 11:47] VITALS: BP 114/57
[2019-01-13 12:39] LABS: ANION GAP 10.6; CHLORIDE,CL 108 mmol/L (101-111); SODIUM,NA 139 mmol/L (135-145)
== END 2019-01-13 13:39 | disposition home or self-care (01) ==
LOC: DL.ED 11:34
DX: R00.2 Palpitations (principal); N76.0 Acute vaginitis; Z91.09 Other allergy status, other than to drugs and biological substances
CPT/HCPCS: 36415; 71045; 80053; 81001; 81025; 84443; 84484; 85025; 87086; 87491; 87591; 93005; 99285-25

== ENCOUNTER 2019-02-03 15:30 | Emergency (ER) | payer MEDICAID ==
[2019-02-03 15:42] VITALS: BP 135/68; PULSE 90
[2019-02-03] MEDS: Ibuprofen 800 MG Tab PO ONE (16:00)
--- NOTE | 2019-02-03 16:08 | CR ---
EXAMINATION: Ankle Min 3V Rt SEX: Female AGE: 38 years CLINICAL HISTORY: 38-year-old female injured right ankle in a fall (pain, swelling). INTERPRETATION: 1. Asymmetric prominent soft tissue swelling over the lateral malleolus. 2. No sign of underlying fracture or disc location of the tibiotalar mortise joint right ankle. 3. Base of the fifth metatarsal unremarkable in this patient with pes cavus and tiny heel spur at the insertion plantar aponeurosis base of the os calcis. CONCLUSION: Right ankle sprain.
--- NOTE | 2019-02-03 16:54 | EDM.PDOC ---
ED HPI GENERAL MEDICAL PROBLEM - General Chief Complaint: Lower Extremity Injury/Pain Stated Complaint: RIGHT ANKLE POSSIBLY BROKEN Time Seen by Provider: 02/03/19 16:00 Source of Information: Reports: Patient, RN, RN Notes Reviewed History Limitations: Reports: No Limitations - History of Present Illness INITIAL COMMENTS - FREE TEXT/NARRATIVE: Pt to the ER with c/o right ankle pain after rolling it stepping off a curb. Patient states she is having 8/10 pain in the right ankle. States she has not injured the ankle in the past. States the cement she stepped off of was uneven and broken. Onset: Today, Sudden Duration: Constant Location: Reports: Lower Extremity, Right Quality: Reports: Ache, Throbbing Severity: Moderate Improves with: Reports: None Worsens with: Reports: None Right Ankle Pain Score (Numeric/FACES): 8 - Related Data Allergies Allergy/AdvReac Type Severity Reaction Status Date / Time cat dander Allergy Sneezing Verified 02/03/19 15:42 dust mites Allergy Sneezing Uncoded 02/03/19 15:42 Home Meds: Home Meds Albuterol Sulfate [Proair Hfa] 2 puff INH ASDIRECTED PRN 12/25/17 [History] Budesonide/Formoterol [Symbicort 160-4.5 MCG] 2 inhaler INH DAILY 01/13/19 [ History] Cefuroxime [Ceftin] 500 mg PO BID 02/03/19 [History] Past Medical History - Past Health History Medical/Surgical History: Denies Medical/Surgical History HEENT History: Reports: None Cardiovascular History: Reports: None Respiratory History: Reports: Asthma Gastrointestinal History: Reports: Cholelithiasis Genitourinary History: Reports: None 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 History: Reports: None, Musculoskeletal History: Reports: None Neurological History: Reports: None Psychiatric History: Reports: Anxiety Endocrine/Metabolic History: Reports: None Hematologic History: Reports: None Immunologic History: Reports: None Oncologic (Cancer) History: Reports: None Dermatologic History: Reports: None - Infectious Disease History Infectious Disease History: Reports: Chicken Pox - Past Surgical History Head Surgeries/Procedures: Reports: None GI Surgical History: Reports: Cholecystectomy Female Surgical History: Reports: Tubal Ligation Social & Family History - Family History Family Medical History: Noncontributory - Tobacco Use Smoking Status *Q: Never Smoker Second Hand Smoke Exposure: No - Caffeine Use Caffeine Use: Reports: Coffee, Soda Other Caffeine Use: 1 can/day - Recreational Drug Use Recreational Drug Use: No - Living Situation & Occupation Living situation: Reports: with Significant Other Occupation: Employed Review of Systems - Review of Systems Review Of Systems: ROS reveals no pertinent complaints other than HPI. ED EXAM, GENERAL - Physical Exam Exam: See Below Exam Limited By: No Limitations General Appearance: Alert, WD/WN, Moderate Distress Eye Exam: Bilateral Eye: EOMI, Normal Inspection Ears: Normal External Exam, Hearing Grossly Normal Nose: Normal Inspection Throat/Mouth: Normal Inspection, Normal Voice, No Airway Compromise Head: Atraumatic, Normocephalic Neck: Normal Inspection, Supple, Non-Tender, Full Range of Motion Respiratory/Chest: No Respiratory Distress, Lungs Clear, Normal Breath Sounds, No Accessory Muscle Use, Chest Non-Tender Cardiovascular: Normal Peripheral Pulses, Regular Rate, Rhythm, No Edema, No Gallop, No JVD, No Murmur, No Rub Peripheral Pulses: 2+: Dorsalis Pedis (R) GI/Abdominal: Normal Bowel Sounds, Soft, Non-Tender (Female) Exam: Deferred Rectal (Female) Exam: Deferred Back Exam: Normal Inspection, Full Range of Motion, NT Extremities: Normal Inspection, No Pedal Edema, Normal Capillary Refill, Joint Swelling (right ankle), Limited Range of Motion (right ankle), Other ( Ecchymosis right anle) Neurological: Alert, Oriented, CN II-XII Intact, Normal Cognition, Normal Gait, Normal Reflexes, No Motor/Sensory Deficits Psychiatric: Anxious Skin Exam: Warm, Dry, Ecchymosis (right ankle) Lymphatic: No Adenopathy Course - Vital Signs Last Recorded V/S: Last Vital Signs Temp 98.4 F 02/03/19 15:38 Pulse 90 02/03/19 15:38 Resp 16 02/03/19 15:38 BP 135/68 02/03/19 15:38 Pulse Ox 100 02/03/19 15:38 - Orders/Labs/Meds Meds: Medications Discontinued Medications Generic Name Dose Route Start Last Admin Trade Name Freq PRN Reason Stop Dose Admin Ibuprofen 800 mg 02/03/19 15:51 02/03/19 16:00 Motrin PO 02/03/19 15:52 800 mg ONETIME ONE Administration - Radiology Interpretation Free Text/Narrative:: Right ankle xray: Ankle Sprain See rad report Departure - Departure Time of Disposition: 16:51 Disposition: Home, Self-Care 01 Condition: Fair Clinical Impression: Sprain of ankle, right Qualifiers: Encounter type: initial encounter Involved ligament of ankle: unspecified ligament Qualified Code(s): S93.401A - Sprain of unspecified ligament of right ankle, initial encounter - Discharge Information *PRESCRIPTION DRUG MONITORING PROGRAM REVIEWED*: No *COPY OF PRESCRIPTION DRUG MONITORING REPORT IN PATIENT NEGRO: No Instructions: Crutch Use, Adult, [id number], Ankle Sprain, [id number], Cast or Splint Care, Adult, [id number] Referrals: PCP,None [Primary Care Provider] - Forms: ED Department Discharge Additional Instructions: Rest Elevate and ice the area as tolerated Wear the splint for 2 weeks at least Use crutches to stay off the foot as tolerated May use Tylenol and/or Ibuprofen as directed for pain Follow up with your primary care facility if no improvement
== END 2019-02-03 17:10 | disposition home or self-care (01) ==
LOC: DL.ED 15:30
DX: S93.401A Sprain of unspecified ligament of right ankle, initial encounter (principal); J45.909 Unspecified asthma, uncomplicated; Z90.49 Acquired absence of other specified parts of digestive tract; Z98.51 Tubal ligation status; Z91.09 Other allergy status, other than to drugs and biological substances; W10.1XXA Fall (on)(from) sidewalk curb, initial encounter; X50.1XXA Overexertion from prolonged static or awkward postures, initial encounter
CPT/HCPCS: 73610; 99283; A9270

== ENCOUNTER 2019-06-28 10:26 | Emergency (ER) | payer MEDICAID ==
[2019-06-28 11:22] VITALS: BP 142/68; PULSE 84
--- NOTE | 2019-06-28 11:26 | EDM.PDOC ---
ED HPI GENERAL MEDICAL PROBLEM - General Chief Complaint: Respiratory Problem Stated Complaint: RESPIRATORY PROBLEM Time Seen by Provider: 06/28/19 11:15 Source of Information: Reports: Patient History Limitations: Reports: No Limitations - History of Present Illness INITIAL COMMENTS - FREE TEXT/NARRATIVE: This 39 yo female patient reports to the ED with shortness of breath (2 days), a headache (today) and chills. The patient reports she has a history of Asthma. The patient reports she took ibuprofen this morning at 5 or 6. The patient has used her nebulizer, inhaler and take Prednisone (yesterday). The patient reports she has not gone to the clinic for her current symptoms. The patient has not had a flu shot this year. 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 - Related Data Allergies Allergy/AdvReac Type Severity Reaction Status Date / Time cat dander Allergy Sneezing Verified 04/11/19 13:39 dust mites Allergy Sneezing Uncoded 04/11/19 13:39 Home Meds: Home Meds Albuterol Sulfate [Proair Hfa] 2 puff INH ASDIRECTED PRN 12/25/17 [History] Budesonide/Formoterol [Symbicort 160-4.5 MCG] 2 inhaler INH DAILY 01/13/19 [ History] Past Medical History - Past Health History Medical/Surgical History: Denies Medical/Surgical History HEENT History: Reports: None Cardiovascular History: Reports: None Respiratory History: Reports: Asthma Gastrointestinal History: Reports: Cholelithiasis Genitourinary History: Reports: None BRASS ROLLER History: Reports: Musculoskeletal History: Reports: None Neurological History: Reports: None Psychiatric History: Reports: Anxiety Endocrine/Metabolic History: Reports: None Hematologic History: Reports: None Immunologic History: Reports: None Oncologic (Cancer) History: Reports: None Dermatologic History: Reports: None - Infectious Disease History Infectious Disease History: Reports: Chicken Pox - Past Surgical History Head Surgeries/Procedures: Reports: None GI Surgical History: Reports: Cholecystectomy Female Surgical History: Reports: Tubal Ligation Social & Family History - Family History Family Medical History: Noncontributory - Caffeine Use Caffeine Use: Reports: Coffee, Soda, Tea Other Caffeine Use: 1 can/day - Living Situation & Occupation Living situation: Reports: with Significant Other Occupation: Employed ED ROS GENERAL - Review of Systems Review Of Systems: Comprehensive ROS is negative, except as noted in HPI. ED EXAM, GENERAL - Physical Exam Exam: See Below Exam Limited By: No Limitations General Appearance: Alert, WD/WN, Moderate Distress Eye Exam: Bilateral Eye: EOMI, Normal Inspection, PERRL Ears: Normal External Exam, Normal Canal, Hearing Grossly Normal, Normal TMs Nose: Normal Inspection, Normal Mucosa, No Blood Throat/Mouth: Normal Inspection, Normal Lips, Normal Teeth, Normal Gums, Normal Oropharynx, Normal Voice, No Airway Compromise Head: Atraumatic, Normocephalic Neck: Normal Inspection, Supple, Non-Tender, Full Range of Motion Respiratory/Chest: No Respiratory Distress, Chest Non-Tender, Rhonchi (diffuse) , Wheezing (right lower lobe) Cardiovascular: Normal Peripheral Pulses, Regular Rate, Rhythm, No Edema, No Gallop, No JVD, No Murmur, No Rub GI/Abdominal: Normal Bowel Sounds, Soft, Non-Tender, No Organomegaly, No Distention, No Abnormal Bruit, No Mass (Female) Exam: Deferred Rectal (Female) Exam: Deferred Back Exam: Normal Inspection, Full Range of Motion, NT Extremities: Normal Inspection, Normal Range of Motion, Non-Tender, Normal Capillary Refill, No Pedal Edema Neurological: Alert, Oriented, CN II-XII Intact, Normal Cognition, Normal Gait, Normal Reflexes, No Motor/Sensory Deficits Psychiatric: Normal Affect, Normal Mood Skin Exam: Warm, Dry, Intact, Normal Color, No Rash Lymphatic: No Adenopathy Course - Vital Signs Last Recorded V/S: Last Vital Signs Temp 36.9 C 06/28/19 11:10 Pulse 84 06/28/19 11:10 Resp 18 06/28/19 11:10 BP 142/68 H 06/28/19 11:10 Pulse Ox 98 06/28/19 11:10 - Orders/Labs/Meds Orders: Active Orders 24 hr Category Date Time Status Chest 2V [CR] Urgent Exams 06/28/19 11:17 Taken CULTURE STREP A CONFIRMATION [] Stat Lab 06/28/19 10:35 Results STREP SCRN A RAPID W CULT CONF [RM] Stat Lab 06/28/19 10:35 Results Labs: Laboratory Tests 06/28/19 06/28/19 Range/Units 11:24 11:24 WBC 8.2 (5.0-10.0) 10^3/uL RBC 4.49 (4.2-5.4) 10^6/uL Hgb 13.1 (12.0-16.0) g/dL Hct 39.6 (37.0-47.0) % MCV 88.2 D (80-100) fL MCH 29.2 (27.0-34.0) pg MCHC 33.1 (33.0-35.0) g/dL Plt Count 250 D (150-450) 10^3/uL Neut % (Auto) 82.0 H (42.2-75.2) % Lymph % (Auto) 6.0 L (20.5-50.1) % [place] % (Auto) 9.9 H (2-8) % Eos % (Auto) 1.7 (1.0-3.0) % Baso % (Auto) 0.4 (0.0-1.0) % Sodium 137 (135-145) mmol/L Potassium 3.7 (3.6-5.0) mmol/L Chloride 105 (101-111) mmol/L Carbon Dioxide 22.0 (21.0-31.0) mmol/L Anion Gap 13.7 BUN 9 (7-18) mg/dL Creatinine 0.8 (0.6-1.3) mg/dL Est Cr Clr Drug Dosing 79.91 mL/min Estimated GFR (MDRD) > 60 BUN/Creatinine Ratio 11.25 Glucose 104 (74-105) mg/dL Calcium 8.8 (8.4-10.2) mg/dl Total Bilirubin 0.4 (0.2-1.0) mg/dL AST 38 (10-42) IU/L ALT 59 (10-60) IU/L Alkaline Phosphatase 57 (42-121) IU/L Total Protein 7.0 (6.7-8.2) g/dl Albumin 4.1 (3.2-5.5) g/dl Globulin 2.9 Albumin/Globulin Ratio 1.41 Meds: Medications Discontinued Medications Generic Name Dose Route Start Last Admin Trade Name Freq PRN Reason Stop Dose Admin Acetaminophen 650 mg 06/28/19 11:16 06/28/19 11:41 Tylenol PO 06/28/19 11:17 650 mg NOW ONE Administration Departure - Departure Time of Disposition: 12:31 Disposition: Home, Self-Care 01 Condition: Fair Clinical Impression: Bronchitis Asthma Qualifiers: Asthma severity: moderate Asthma persistence: unspecified Asthma complication type: with acute exacerbation Qualified Code(s): J45.901 - Unspecified asthma with (acute) exacerbation - Discharge Information *PRESCRIPTION DRUG MONITORING PROGRAM REVIEWED*: Not Applicable *COPY OF PRESCRIPTION DRUG MONITORING REPORT IN PATIENT NEGRO: Not Applicable Instructions: Upper Respiratory Infection, Adult, [id number] Forms: ED Department Discharge Care Plan Goals: The patient was advised of the examination, lab, and x-ray results during the visit. The patient was discharged with a script for Azithromycin (250 mg) #6 to take 2 by mouth on day 1 and 1 by mouth on days 2-5 and Prednisone (20 mg) #10 to take 2 by mouth daily with food for 5 days. If the patient has any additional symptoms or concerns, the patient should either return to the emergency department or visit her primary care facility. Sepsis Event Note - Evaluation Sepsis Screening Result: No Definite Risk - Focused Exam Vital Signs: Vital Signs Temp Pulse Resp BP Pulse Ox 06/28/19 11:10 36.9 C 84 18 142/68 H 98 Date Exam was Performed: 06/28/19 Time Exam was Performed: 12:30 - My Orders Last 24 Hours: My Active Orders 06/28/19 10:35 CULTURE STREP A CONFIRMATION [RM] Stat STREP SCRN A RAPID W CULT CONF [RM] Stat 06/28/19 11:17 Chest 2V [CR] Urgent - Assessment/Plan Last 24 Hours: My Active Orders 06/28/19 10:35 CULTURE STREP A CONFIRMATION [RM] Stat STREP SCRN A RAPID W CULT CONF [RM] Stat 06/28/19 11:17 Chest 2V [CR] Urgent
[2019-06-28] MEDS: Acetaminophen 325 MG Tab PO ONE (11:41)
[2019-06-28 11:50] LABS: ANION GAP 13.7; CHLORIDE,CL 105 mmol/L (101-111); SODIUM,NA 137 mmol/L (135-145)
== END 2019-06-28 12:35 | disposition home or self-care (01) ==
LOC: DL.ED 10:26
DX: J45.901 Unspecified asthma with (acute) exacerbation (principal); Z91.09 Other allergy status, other than to drugs and biological substances; Z79.51 Long term (current) use of inhaled steroids
CPT/HCPCS: 36415; 71046; 80053; 85025; 87081; 87430; 87804; 99285-25; A9270-GY